=== PATIENT | female | born 1990 | race Caucasian/White ===

== ENCOUNTER 2018-11-23 17:46 | Inpatient (IN) | payer MEDICAID ==
[2018-11-23 19:07] LABS: ADD MAN DIFF? NO
[2018-11-23 19:14] LABS: WHITE BLOOD COUNT 10.5 10^3/ul (4.8-10.8)
[2018-11-23 19:14] LABS: BASOPHILS % 0.2 % (0.0-2.0); EOSINOPHILS # 0.1 10^3/ul (0.0-0.5); HEMATOCRIT 33.8 % (37.0-47.0); HEMOGLOBIN 11.4 g/dl (12.0-16.0); LYMPHOCYTES # 2.7 10^3/ul (0.8-2.9); LYMPHOCYTES % 25.8 % (15.0-51.0); MEAN CORPUSCULAR HGB CONC 33.7 g/dl (32.0-37.0); MEAN CORPUSCULAR VOLUME 88.9 fl (82.0-101.0); MEAN PLATELET VOLUME 10.4 fl (7.4-10.4); MONOCYTE # 0.7 10^3/ul (0.3-0.9); MONOCYTES % 6.6 % (0.0-11.0); NEUTROPHIL # 6.9 10^3/ul (1.6-7.5); NEUTROPHILS % 65.7 % (39.0-77.0); PLATELET COUNT 238 10^3/UL (140-415)
[2018-11-23 19:29] LABS: ADD UMIC YES; UR ASCORBIC ACID NEGATIVE (NEGATIVE); UR BACTERIA FEW /HPF (NONE SEEN); UR BILIRUBIN (Dip) NEGATIVE (NEGATIVE); UR BLOOD (Dip) 1+ mg/dL (NEGATIVE); UR CLARITY CLOUDY (CLEAR); UR COLOR YELLOW (YELLOW); UR GLUCOSE (Dip) NEGATIVE (NEGATIVE); UR KETONES (Dip) NEGATIVE (NEGATIVE); UR LEUKOCYTE ESTERASE (Dip) 3+ Leu/ul (NEGATIVE); UR NITRITE (Dip) NEGATIVE (NEGATIVE); UR RBC 6 /HPF (0-5); UR SPECIFIC GRAVITY (Dip) 1.006 (1.003-1.030); UR SQUAMOUS EPITHELIAL CELL FEW /HPF (FEW); UR TOTAL PROTEIN (Dip) NEGATIVE (NEGATIVE); UR UROBILINOGEN (Dip) NEGATIVE (NEGATIVE); UR WBC 76 /HPF (0-5)
[2018-11-23] MEDS: LACTATED RINGER'S 1,000 ML IV ×3 (20:38→23:11)
[2018-11-23] MEDS ORDERED: ACETAMINOPHEN 325 MG TAB PO (23:00)
[2018-11-24] MEDS: SOD CHLORIDE 0.9% 1,000 ML IV ×2 (01:08→09:06)
[2018-11-24] MEDS: CEFTRIAXONE 1 GM/50 ML (PMX) 50 ML IVPB ×2 (01:08→01:10)
[2018-11-24] MEDS: PRENATAL VITAMIN PO (09:06)
== END 2018-11-24 19:35 | disposition home or self-care (01) | DRG 833 ==
LOC: OBT 17:46 → L-D 17:48 → OBT 22:40 → L-D 22:40
DX: O23.13 Infections of bladder in pregnancy, third trimester (principal); O40.3XX0 Polyhydramnios, third trimester, not applicable or unspecified; Z3A.32 32 weeks gestation of pregnancy
CPT/HCPCS: 76815; 76817; 81001; 85025; 87086; 96360; 96361

== ENCOUNTER 2018-11-25 13:08 | Outpatient (CLI) | payer MEDICAID | END 2018-11-25 16:20 | disposition home or self-care (01) | LOC: OBT 13:08 → L-D 13:09 → OBT 16:20 | DX: O60.03 Preterm labor without delivery, third trimester (principal); Z3A.32 32 weeks gestation of pregnancy | CPT/HCPCS: 76817; 76818 ==

== ENCOUNTER 2018-12-27 09:37 | Inpatient (IN) | payer MEDICAID ==
[2018-12-27] MEDS ORDERED: IBUPROFEN 600 MG TAB PO (10:30)
[2018-12-27] MEDS ORDERED: OXYTOCIN 30 UNITS/LR 500 ML IV ×2 (10:30→23:30)
[2018-12-27] MEDS ORDERED: BUTORPHANOL 2 MG INJ IV (10:30)
[2018-12-27] MEDS ORDERED: LIDOCAINE 1% (MPF) 30 ML INJ INJ (10:30)
[2018-12-27] MEDS ORDERED: MISOPROSTOL 200 MCG TAB PR ×2 (10:30→23:30)
[2018-12-27] MEDS ORDERED: CARBOPROST 250 MCG INJ IM ×2 (10:30→23:30)
[2018-12-27] MEDS ORDERED: METHYLERGONOVINE 0.2 MG INJ IM ×2 (10:30→23:30)
[2018-12-27] MEDS: LACTATED RINGER'S 1,000 ML IV ×3 (11:21→17:21)
[2018-12-27 12:16] LABS: ADD MAN DIFF? NO
[2018-12-27 12:28] LABS: BASOPHILS % 0.3 % (0.0-2.0); EOSINOPHILS % 0.4 % (0.0-7.0); HEMOGLOBIN 12.4 g/dl (12.0-16.0); LYMPHOCYTES # 2.2 10^3/ul (0.8-2.9); LYMPHOCYTES % 22.9 % (15.0-51.0); MEAN CORPUSCULAR HEMOGLOBIN 29.6 pg (29.0-33.0); MEAN CORPUSCULAR HGB CONC 32.6 g/dl (32.0-37.0); MEAN CORPUSCULAR VOLUME 90.7 fl (82.0-101.0); MEAN PLATELET VOLUME 11.5 fl (7.4-10.4); MONOCYTE # 0.5 10^3/ul (0.3-0.9); MONOCYTES % 5.7 % (0.0-11.0); NEUTROPHIL # 6.6 10^3/ul (1.6-7.5); NEUTROPHILS % 70.3 % (39.0-77.0); PLATELET COUNT 272 10^3/UL (140-415); RED BLOOD COUNT 4.19 10^6/ul (4.20-5.40); RED CELL DISTRIBUTION WIDTH 13.3 % (11.5-14.5)
[2018-12-27 12:28] LABS: WHITE BLOOD COUNT 9.5 10^3/ul (4.8-10.8)
[2018-12-27 12:48] LABS: INR 0.88; PT RATIO 0.9
[2018-12-27 12:49] LABS: PARTIAL THROMBOPLASTIN TIME 27.1 Sec (23.0-35.0)
[2018-12-27 13:13] LABS: HEPATITIS B SURFACE ANTIGEN NEGATIVE (NEGATIVE)
[2018-12-27] MEDS ORDERED: NALOXONE (0.4 MG/ML) INJ IV (15:30)
[2018-12-27] MEDS ORDERED: DIPHENHYDRAMINE 50 MG INJ IV ×2 (15:30→23:30)
[2018-12-27] MEDS ORDERED: ONDANSETRON 4 MG INJ IV ×2 (15:30→23:30)
[2018-12-27 15:46] LABS: RAPID PLASMA REAGIN NONREACTIVE (NR)
[2018-12-27] MEDS: FENTAnyl 2MCG/ML-ROPIV 0.2% 100 ML BAG EPI (20:38)
[2018-12-27] MEDS: OXYTOCIN 30 UNITS/LR 500 ML IV ×2 (20:44→21:00)
[2018-12-27] MEDS ORDERED: DEXTROSE 5%-LR 1,000 ML IV (23:06)
[2018-12-27] MEDS ORDERED: WITCH HAZEL/GLYCERIN PAD PR (23:30)
[2018-12-27] MEDS ORDERED: OXYCODONE/ASPIRIN (4.88/325) TAB PO (23:30)
[2018-12-27] MEDS ORDERED: DIBUCAINE 1% 30 GM OINT TOP (23:30)
[2018-12-27] MEDS ORDERED: BENZOCAINE 20% 56 ML SPRAY TOP (23:30)
[2018-12-27] MEDS ORDERED: MAGNESIUM HYDROXIDE 30ML CUP PO (23:30)
[2018-12-27] MEDS ORDERED: LANOLIN HPA 1 PKT TOP (23:30)
[2018-12-27] MEDS ORDERED: ACETAMINOPHEN 325 MG TAB PO (23:30)
[2018-12-27] MEDS ORDERED: SENNA/DOCUSATE NA (8.6MG/50MG) TAB PO (23:30)
[2018-12-27] MEDS ORDERED: ZOLPIDEM 5 MG TAB PO (23:30)
[2018-12-28] MEDS: IBUPROFEN 600 MG TAB PO ×5 (00:25→23:24)
[2018-12-28] MEDS: LACTATED RINGER'S 1,000 ML IV* ×2 (01:20→15:06)
[2018-12-28 09:00] LABS: ADD MAN DIFF? NO
[2018-12-28 09:01] LABS: WHITE BLOOD COUNT 9.7 10^3/ul (4.8-10.8)
[2018-12-28 09:01] LABS: BASOPHILS % 0.3 % (0.0-2.0); EOSINOPHILS % 0.4 % (0.0-7.0); HEMATOCRIT 32.1 % (37.0-47.0); HEMOGLOBIN 10.6 g/dl (12.0-16.0); LYMPHOCYTES # 1.4 10^3/ul (0.8-2.9); LYMPHOCYTES % 14.7 % (15.0-51.0); MEAN CORPUSCULAR HEMOGLOBIN 29.5 pg (29.0-33.0); MEAN CORPUSCULAR VOLUME 89.4 fl (82.0-101.0); MEAN PLATELET VOLUME 10.9 fl (7.4-10.4); MONOCYTE # 0.6 10^3/ul (0.3-0.9); MONOCYTES % 6.5 % (0.0-11.0); NEUTROPHIL # 7.6 10^3/ul (1.6-7.5); NEUTROPHILS % 77.6 % (39.0-77.0); PLATELET COUNT 211 10^3/UL (140-415); RED BLOOD COUNT 3.59 10^6/ul (4.20-5.40); RED CELL DISTRIBUTION WIDTH 13.3 % (11.5-14.5)
[2018-12-29] MEDS: IBUPROFEN 600 MG TAB PO ×2 (05:32→12:00)
[2018-12-29] MEDS: DIPHTH/TET/ACEL PERTUSS (ADULT) 0.5 ML VIAL IM* (09:04)
[2018-12-29] MEDS: MEASLES,MUMPS,RUBELLA VACCINE INJ SC* (09:04)
== END 2018-12-29 15:55 | disposition home or self-care (01) | DRG 807 ==
LOC: OBT 09:37 → L-D 09:37 → OBT 09:50 → L-D 10:06 → PP1 22:11
PROVIDERS: Obstetrics & Gynecology
PROC: 10E0XZZ Delivery of Products of Conception, External Approach (ICD-10-PCS; principal; 2018-12-27)
PROC: 0HQ9XZZ Repair Perineum Skin, External Approach (ICD-10-PCS; 2018-12-27)
DX: O70.0 First degree perineal laceration during delivery (principal); Z37.0 Single live birth; O69.81X0 Labor and delivery complicated by cord around neck, without compression, not applicable or unspecified; O99.214 Obesity complicating childbirth; E66.9 Obesity, unspecified; Z3A.37 37 weeks gestation of pregnancy
CPT/HCPCS: 62322; 85025; 85610; 85730; 86592; 86850; 86900; 86901; 87340